=== PATIENT | female | born 1980 | race Caucasian/White ===

== ENCOUNTER → 2020-03-03 | Outpatient (CLI) | payer OTHER ==
[~2020-03-03] MED LIST: ROBAXIN500 MG PO; TRAMADOL 50 MG50 MG PO; ZOFRAN4 MG PO
== END ==
LOC: LAB 11:27
PROVIDERS: ATTEND Surgery
DX: Z01.812 Encounter for preprocedural laboratory examination (principal); Z20.828 Contact with and (suspected) exposure to other viral communicable diseases

== ENCOUNTER 2020-03-10 10:45 | Observation (INO) | payer OTHER ==
[~2020-03-10] VITALS: Ht 157.5 cm; Wt 102.1 kg
[~2020-03-10 10:45] MED LIST changes: +ACID CONTROLLER20 MG PO; +ATIVAN2 MG PO; +CYMBALTA60 MG PO; +EPIPEN0.3 MG/0.1 IM; +FOSAMAX 70 MG T70 MG PO; +GABAPENTIN600 M1 PO; +IMITREX6 MG/0.5 M SUBQ; +MINIPRESS5 MG PO; +ONDANSETRON HCL4 M2 PO; +OXYBUTYNIN CHLO10 MG PO; +PLAQUENIL200 MG PO; +PROAIR HFA8.5 GM INH; +PROTONIX 20 MG20 MG PO; +REGLAN 10 MG TA10 MG PO; +RITALIN10 MG PO; +TRAZODONE HCL100 MG PO; +XANAX1 MG PO
[2020-03-10 11:42] LABS: HEMATOCRIT 38.1 % (37.0-47.0); MCH 29.4 pg (26.0-34.0); MCV 86.5 fL (80.0-100.0); RBC 4.4 mil/uL (4.20-5.00); RDW 13.5 % (10.5-14.5); WBC 11.5 thou/uL (4.0-11.0)
[2020-03-10 11:53] LABS: CALCIUM 8.4 mg/dL (8.5-10.1); CREATININE 1.1 mg/dL (0.6-1.0); POTASSIUM 3.9 mmol/L (3.5-5.1)
[2020-03-10 11:59] VITALS: BP 113/63
[2020-03-10 18:11] VITALS: BP 138/71
[2020-03-10 19:40] VITALS: BP 138/81
--- NOTE | 2020-03-10 19:55 | NUR ---
PATIENT ADMITTED FOR OR WITH LAP HIATAL HERNIA LINX, 6 LAP SITES WITH STERI-STRIPS NOTED WITH DRY BLOOD. PATIENT C/O PAIN WITH BILATERAL SHOULDERS 3/10 AND ABDOMEN AREA 5/10. PATIENT C/O NAUSEA DURING ADMISSION. PATIENT UP TO BATHROOM, URINATED W/O DIFFICULTY. CLEAR LIQUID DIET ORDERED. VSS. MED REC. DONE. ADMISSION DONE, REPORT GIVEN SHAAN HOLGUIN/LIBBY. CHELSIE/RN WILL NOTIFY DR ALLEN FOR NAUSEA MEDICATION ORDERS, PATIENT HAS SCOP PATCH RIGHT EAR, AND TO RESTART HOME MEDS NEEDED FOR TONIGHT.
[2020-03-11 04:10] VITALS: BP 132/79
[2020-03-11 07:10] VITALS: BP 151/93
[2020-03-11 11:46] VITALS: BP 151/93
--- NOTE | 2020-03-11 11:46 | NUR ---
PT IS HERE S/P LAP HIATAL HERNIA. PT REPORTS SHE IS FULLY INDEPENDENT WITH ADLS AND AMBULATION. PT REPORTS NO NEEDS FROM CM. PT REPORTS HER IS HERE TO PICK HER UP. CASE CLOSED.
--- NOTE | 2020-03-11 11:49 | NUR ---
ASSUMED CARES AT 0700. PT AWAKE, ALERT AND ORIENTED*4. C/O ABDOMINAL PAIN, PAIN MEDICATION ADMINISTERED NEEDED. VITALS REMAIN STABLE. LAP SITES REMAIN DRY AND INTACT, STERI STRIPS IN PLACE. PT UP TO THE BATHROOM INDEPENDENTLY. C/O NAUSEA *1, ZOFRAN ADMINISTERED NEEDED, SCOPALAMINE PATCH REMAINS IN PLACE RIGHT EAR. Q1H VISUAL CHECKS. CALL LIGHT WITHIN REACH. FALL PRECAUTIONS IN PLACE.
--- NOTE | 2020-03-15 12:29 | O ---
[facility] [place] [address] OPERATIVE REPORT Name: JJ VERDIN Room #: 433-I [facility] Luis Byrd#: [id number] Admission: 03/10/20 Attend Phys: Kory Milian, Discharge: 03/11/20 Date of : 76 Report #: [id number] THIS REPORT FOR: cc: Jonh Rascon MD, Bruce D. MD Patterson, Jonathan D. MD ~ CC: Jonh Milian DATE OF SERVICE: 03/10/2020 PREOPERATIVE DIAGNOSIS: Chronic refractory gastroesophageal reflux disease. POSTOPERATIVE DIAGNOSIS: Chronic refractory gastroesophageal reflux disease. OPERATION: Laparoscopic placement of LINX antireflux device. SURGEON: Kory Milian MD ANESTHESIA: General. ESTIMATED BLOOD LOSS: Minimal. SPECIMEN: None. DESCRIPTION OF PROCEDURE: After informed consent was obtained, the patient was brought to the operating room and placed supine. SCDs were placed and working, preoperative antibiotics were administered, general anesthesia was induced. The abdomen was prepped and draped in the usual sterile fashion after Young catheter was placed. A 1 mm incision was made in the left upper quadrant. Veress needle was inserted. Pneumoperitoneum was established. Left periumbilical 5 mm trocar was placed. Camera was inserted and a left-sided 8 mm trocar was placed and 2 right-sided 5 mm trocars were placed. An epigastric port was made. A Lisa retractor was placed through the epigastric port. The liver was retracted superiorly and anteriorly. This allowed visualization of the hiatus. The pars flaccida was incised with LigaSure. Cautery dissection was made up to the right natalie, which was identified. The phrenoesophageal ligament was incised with the LigaSure. The left natalie was identified. The distal esophagus was then isolated. Dissection at the hiatus was undertaken to free up the distal esophagus. There was no hiatal hernia to speak of. A window was made between the posterior vagus nerve and the esophagus. The [place] drain was then placed through this window. A LINX sizer was placed. This was a size 14 LINX. The sizer was removed. A size 14 LINX was placed into [address] [address] OPERATIVE REPORT Name: JJ VERDIN Room #: 433-I [facility] Luis Byrd#: [id number] Admission: 03/10/20 Attend Phys: Kory Milian, Discharge: 03/11/20 Date of : 76 Report #: [id number] the abdomen. Under direct vision, it was clasped around the distal esophagus anterior to the posterior vagus nerve. The [place] drain was then removed. The larynx did not appear too loose or too tight. The liver was then placed back into its anatomic position. The ports were removed under direct vision. The skin was closed with 4-0 Monocryl. Incisions were sealed with Steri-Strips. COMPLICATIONS: None. DISPOSITION: The patient was taken to recovery in satisfactory condition. <ELECTRONICALLY SIGNED> By: Kory Milian MD 03/15/20 [id number] Kory Milian MD /nt
== END 2020-03-11 12:35 | disposition home or self-care (01) ==
LOC: OR 10:45 → TBA 10:51 → OR 12:26 → 4S 17:59 → OR 17:59 → 4S 03-11 12:35
PROVIDERS: ADMIT Surgery; ATTEND Surgery
DX: K21.9 Gastro-esophageal reflux disease without esophagitis (principal); J45.909 Unspecified asthma, uncomplicated; F41.9 Anxiety disorder, unspecified; F32.9 Major depressive disorder, single episode, unspecified; G43.909 Migraine, unspecified, not intractable, without status migrainosus; M10.9 Gout, unspecified; Z79.899 Other long term (current) drug therapy
CPT/HCPCS: 50010; 50101; 50249; 50386; 50455; 50555; 52265; 52266; 53307; 53310; 56462; 56525; 56526; 57092; 58104; 62110; 62900; 70005